=== PATIENT | male | born 1950 | race Caucasian/White ===

== ENCOUNTER → 2017-02-16 | Outpatient (CLI) | payer BC | END | disposition home or self-care (01) | LOC: CPPFTMAIN 13:11 | PROVIDERS: ATTEND Internal Medicine | DX: R06.00 Dyspnea, unspecified (principal); R05 Cough | CPT/HCPCS: 94060; 94726; 94729 ==

== ENCOUNTER → 2017-09-03 | Outpatient (CLI) | payer BC | END | disposition home or self-care (01) | LOC: LABWHC1 09:54 | PROVIDERS: ATTEND Internal Medicine | DX: E03.9 Hypothyroidism, unspecified (principal) | CPT/HCPCS: 36415; 84439 ==

== ENCOUNTER → 2017-09-24 | Outpatient (CLI) | payer BC ==
--- NOTE | 2017-09-24 13:25 | XR ---
EXAMINATION TYPE: XR hand complete RT DATE OF EXAM: 09/24/2017 COMPARISON: NONE HISTORY: Pain TECHNIQUE: Three views are submitted. FINDINGS: The osseous structures are intact. Mild narrowing the first carpal metacarpal joint and there is no a cute fracture or dislocation. IMPRESSION: 1. No definite acute fracture or dislocation if symptoms persist, follow-up study in 7 to 10 days wo uld be suggested. 2. Mild arthropathy first carpal metacarpal joint. No erosive changes.
== END | disposition home or self-care (01) ==
LOC: RADXRMAIN 12:40
PROVIDERS: ATTEND Internal Medicine
DX: M12.841 Other specific arthropathies, not elsewhere classified, right hand (principal); R52 Pain, unspecified

== ENCOUNTER → 2018-11-12 | Outpatient (CLI) | payer BC ==
[2018-11-12 08:27] LABS: HCT 42.6 % (39.0-53.0); HGB 14.5 gm/dL (13.0-17.5); MCH 29.3 pg (25.0-35.0); MCHC 34.1 g/dL (31.0-37.0); Mean Platelet Volume 6.2; Platelet Count 267 k/uL (150-450); RBC 4.95 m/uL (4.30-5.90); RDW 13.1 % (11.5-15.5); WBC 7.4 k/uL (3.8-10.6)
[2018-11-12 08:41] LABS: Appearance,Urine Clear (Clear); Bilirubin,Urine Negative (Negative); Blood,Urine Negative (Negative); Color,Urine Yellow; Glucose,Urine (UA) Negative (Negative); Ketones,Urine Negative (Negative); Leukocyte Esterase,Urine Negative (Negative); Nitrite,Urine Negative (Negative); Protein,Urine Trace (Negative); Specific Gravity,Urine 1.015 (1.001-1.035); Urobilinogen,Urine <2.0 mg/dL (<2.0)
[2018-11-12 17:58] LABS: Albumin 4.3 g/dL (3.80-4.90); Albumin/Globulin Ratio 1.65 (1.60-3.17); Anion Gap 7.7 mmol/L (4.00-12.00); Calcium 9.7 mg/dL (8.7-10.3); Carbon Dioxide 28.3 mmol/L (21.6-31.8); Globulin 2.6 g/dL (1.6-3.3); LDL Cholesterol,Calculated 80.4 mg/dL (0.0-131.0); Potassium 5.1 mmol/L (3.5-5.5); Total Bilirubin 0.9 mg/dL (0.2-1.2); Total Protein 6.9 g/dL (6.2-8.2); VLDL Calculation 18.6 mg/dL (5.00-40.00)
[2018-11-12 18:54] LABS: Hemoglobin A1C 6.2 % (4.0-6.0)
== END | disposition home or self-care (01) ==
LOC: LABWHC1 08:04
PROVIDERS: ATTEND Internal Medicine
DX: E78.5 Hyperlipidemia, unspecified (principal); E11.9 Type 2 diabetes mellitus without complications; R10.13 Epigastric pain
CPT/HCPCS: 36415; 80053; 80061; 81003; 82043; 82150; 82570; 83036; 83690; 85027

== ENCOUNTER → 2020-05-08 | Outpatient (CLI) | payer MEDICARE ==
[2020-05-08 09:18] LABS: HCT 42.7 % (39.0-53.0); HGB 14.3 gm/dL (13.0-17.5); MCH 28.7 pg (25.0-35.0); MCHC 33.4 g/dL (31.0-37.0); Mean Platelet Volume 7.3; Platelet Count 266 k/uL (150-450); RBC 4.96 m/uL (4.30-5.90); RDW 13.2 % (11.5-15.5); WBC 7.4 k/uL (3.8-10.6)
[2020-05-08 16:38] LABS: African American GFR (CKD) 70.6 (60.0-200.0); Albumin 4.4 g/dL (3.80-4.90); Albumin/Globulin Ratio 1.52 (1.60-3.17); Anion Gap 6.2 mmol/L (4.00-12.00); BUN/Creat Ratio 6.67 Ratio (12.00-20.00); Calcium 9.9 mg/dL (8.7-10.3); Carbon Dioxide 27.8 mmol/L (21.6-31.8); Chol/HDL Ratio 3.55; Globulin 2.9 g/dL (1.6-3.3); LDL Cholesterol,Calculated 128.4 mg/dL (0.0-131.0); Non-African American GFR(CKD) 60.9 (60.0-200.0); Potassium 5.3 mmol/L (3.5-5.5); Total Bilirubin 0.8 mg/dL (0.2-1.2); Total Protein 7.3 g/dL (6.2-8.2); VLDL Calculation 19.6 mg/dL (5.00-40.00)
[2020-05-08 16:45] LABS: PSA Annual Screen 0.6 ng/mL (0.0-4.0)
[2020-05-08 17:07] LABS: Hemoglobin A1C 6.2 % (4.0-6.0)
== END | disposition home or self-care (01) ==
LOC: LABWHC1 07:47
PROVIDERS: ATTEND Internal Medicine
DX: E78.5 Hyperlipidemia, unspecified (principal); E11.9 Type 2 diabetes mellitus without complications; E03.9 Hypothyroidism, unspecified; Z12.5 Encounter for screening for malignant neoplasm of prostate
CPT/HCPCS: 80061; 80053; 84443; 85027; 82043; 82570; 83036; 36415; G0103

== ENCOUNTER → 2022-06-09 | Outpatient (CLI) | payer MEDICARE ==
--- NOTE | 2022-06-09 11:58 | US ---
EXAMINATION TYPE: US carotid duplex BILAT DATE OF EXAM: 06/09/2022 COMPARISON: NONE CLINICAL HISTORY: R42 episodic lightheadedness. TECHNIQUE: Carotid duplex ultrasound examination. Indirect Doppler criteria was utilized. FINDINGS: EXAM MEASUREMENTS: RIGHT: Peak Systolic Velocity (PSV) cm/sec ----- Right CCA: 68.6 ----- Right ICA: 71.2 ----- Right ECA: 75.4 ICA/CCA ratio: 1.0 RIGHT: End Diastole cm/sec ----- Right CCA: 15.4 ----- Right ICA: 21.5 ----- Right ECA: 10.6 LEFT: Peak Systolic Velocity (PSV) cm/sec ----- Left CCA: 75.6 ----- Left ICA: 72.1 ----- Left ECA: 63.3 ICA/CCA ratio: 1.0 LEFT: End Diastole cm/sec ----- Left CCA: 18.8 ----- Left ICA: 24.1 ----- Left ECA: 11.0 VERTEBRALS (direction of flow): Right Vertebral: Antegrade Left Vertebral: Antegrade Rhythm: Normal MOBILE ARCHITECT NOTES: No significant stenosis seen. No elevated velocities. IMPRESSION: No evidence for hemodynamically significant stenosis Criteria for Assigning % of Stenosis / Diameter reduction (Estimation based on the indirect measurements of the internal carotid artery velocities (ICA PSV). 1. Normal (no stenosis)=ICA PSV < 125 cm/s: ratio < 2.0: ICA EDV<40 cm/s. 2. Less than 50% stenosis=ICA PSV < 125 cm/s: ratio < 2.0: ICA EDV<40 cm/s. 3. 50 to 69% stenosis=ICA PSV of 125 to 230 cm/s: ration 2.0 ? 4.0: ICA EDV 40-100 cm/s. 4. Greater than 70% stenosis to near occlusion= ICA PSV > 230 cm/s: ratio > 4.0: ICA EDV > 100 cm/s. 5. Near occlusion= ICA PSV velocities may be low or undetectable: variable ratio and ICA EDV. 6. Total occlusion=unable to detect flow.
== END | disposition home or self-care (01) ==
LOC: RADUSWWP 10:53
PROVIDERS: ATTEND Internal Medicine
DX: R42 Dizziness and giddiness (principal)
CPT/HCPCS: 93880